=== PATIENT | male | born 1940 | race Caucasian/White ===

== ENCOUNTER → 2023-05-02 07:20 | Outpatient (REF) | payer OTHER, SELFPAY | LOC: DHCBS MAIN 07:20 | PROVIDERS: ATTENDING PHYSICIAN Internal Medicine Cardiovascular Disease; FAMILY PHYSICIAN Family Medicine | DX: I35.0 Nonrheumatic aortic (valve) stenosis (principal) | CPT/HCPCS: 93306 ==

== ENCOUNTER → 2023-05-15 10:52 | Outpatient (REF) | payer OTHER, SELFPAY | LOC: DHCBC/DCA 10:52 | PROVIDERS: ATTENDING PHYSICIAN Internal Medicine Cardiovascular Disease; FAMILY PHYSICIAN Family Medicine | DX: R07.9 Chest pain, unspecified (principal) | CPT/HCPCS: 78452; 93017; A9500 ==

== ENCOUNTER 2024-06-29 18:16 | Emergency (ER) | payer OTHER, SELFPAY ==
[2024-06-29 18:22] VITALS: BP 141/84
[2024-06-29 18:36] LABS: % Basophils 0.4 % (0-2); % Immature Granulocytes 0.3 % (0-0.5); % Monocytes 10.2 % (1.7-9.3); % Neutrophils 63.1 % (42.2-75.2); Absolute Eosinophils 0.1 10^3/uL (0-0.7); Absolute Lymphocytes 1.9 10^3/uL (1.2-3.4); Absolute Monocytes 0.8 10^3/uL (0.1-0.6); Absolute Neutrophils 4.9 10^3/uL (1.4-6.5); Hematocrit 39.8 % (39.0-52.0); Hemoglobin 13.4 g/dL (13.0-18.0); Mean Corp Hgb Conc. 33.7 g/dL (33.0-37.0); Mean Corpuscular Hgb 32.3 pg (27.0-31.0); Mean Corpuscular Volume 95.9 fL (80.0-94.0); Mean Platelet Volume 9.7 fL (7.4-10.4); Nucleated Red Blood Cells % 0 % (-); Platelet Count 273 10^3/uL (130-400); Red Blood Cell Count 4.15 10^6/uL (4.70-6.10); Red Cell Dist. Width 12.6 % (11.5-14.5); White Blood Cell Count 7.7 10^3/uL (4.8-10.8)
[2024-06-29 18:52] LABS: ALT (SGPT) 28 U/L (0-50); AST (SGOT) 33 U/L (17-59); Albumin 4.6 g/dl (3.5-5.0); Alkaline Phosphatase 62 U/L (38-126); Blood Urea Nitrogen 33 mg/dl (9-20); Carbon Dioxide 30 mmol/L (22-30); Chloride 109 mmol/L (98-107); Glucose 126 mg/dl (70-99); Lipase 514 U/L (23-300); Potassium 4.4 mmol/L (3.5-5.1); Sodium 144 mmol/L (135-145); Total Protein 6.9 g/dl (6.3-8.2); eGFR > 60.00
[2024-06-29 19:03] LABS: Troponin I 0.021 ng/ml
--- NOTE | 2024-06-29 22:21 | ED.GENMED ---
History of Present Illness
General
Chief Complaint: Dizziness
Source: patient
Exam Limitations: none
Time Seen by Provider: 06/29/24 22:01
History of Present Illness
History of Present Illness:
See MDM
Past History
Past History
ED Past Medical History: HTN, Hypercholesterolemia and Valvular disease
ED Past Surgical History: Negative Cardiac
Social History
Tobacco: Non-smoker
Alcohol: None
Drug: None
Personal:
Living: with family
Employment: Employed
Phy Exam
Physical Exam
Physical Exam:
See MDM
Course
Orders/Labs/Results
Orders:
Orders
06/29/24 18:17
Electrocardiogram (*1) Urgent
Reason for Study: Chest Pain
EKG- Treatment ONCE
06/29/24 18:29
Complete Blood Count/With Diff Urgent
Comprehensive Metabolic Panel Urgent
Lipase Urgent
Troponin I Urgent
06/29/24 23:03
Urinalysis Reflex To Culture Urgent
Date Specimen was Collected: 06/29/24
Time Specimen was Collected: 22:25
06/29/24 23:12
Tamsulosin [Flomax] 0.4 mg PO NOW STA
Abnormal Lab Results
06/29/24
18:29
RBC 4.15 L 10^6/uL
(4.70-6.10)
MCV 95.9 H fL
(80.0-94.0)
MCH 32.3 H pg
(27.0-31.0)
Absolute Monos (auto) 0.8 H 10^3/uL
(0.1-0.6)
Monocytes % 10.2 H %
(1.7-9.3)
Chloride 109 H mmol/L
(98-107)
BUN 33 H mg/dl
(9-20)
Glucose 126 H mg/dl
(70-99)
Lipase 514 H U/L
(23-300)
06/29/24 18:29
06/29/24 18:29
Vital Signs
Initial and Last Documented VS:
Initial Vital Signs
Temp Pulse Resp BP Pulse Ox
98.4 F 74 18 141/84 98
06/29/24 18:22 06/29/24 18:22 06/29/24 18:22 06/29/24 18:22 06/29/24 18:22
Last Documented Vital Signs
Temp Pulse Resp BP Pulse Ox
98.4 F 60 17 167/89 98
06/29/24 18:22 06/29/24 22:45 06/29/24 22:45 06/29/24 22:30 06/29/24 22:45
MDM/Problems Addressed
Differential Diagnosis Includes:
HPI and MDM Narrative:
84-year-old male presenting with several weeks of dizziness and fatigue and chest pain. He states he is less concerned about the pain but complains more of dizziness. Both symptoms are nonexertional. Blood work was done prior to my assessment and
patient has a normal troponin. Given several weeks of symptoms with a normal troponin and nonischemic EKG, doubt ACS. Upon further questioning, patient has had increased urination. He believes he might have undiagnosed BPH. Bedside bladder scan
shows an empty bladder which makes me more concerned that this could be cystitis. Given the increased urination, patient has been fearful of drinking too much water as he wakes up often in the middle the night to urinate.
We discussed that his symptoms could be related to mild dehydration. He has no cerebellar signs. He does have a murmur but patient states this is normal for him
Blood work also shows mildly elevated lipase but he denies any pain with eating. This could be his chest discomfort. We discussed GI evaluation
We had a long discussion in regards to admission versus discharge. I offered admission for cardiac workup and GI evaluation
However, patient is interested in starting Flomax and having the workup done as an outpatient. If urinalysis is negative, will consider starting Flomax. If urinalysis positive, will treat with antibiotics
Physical exam
General: Well appearing and non-toxic
HEENT: protecting airway. Mildly dry mucous membrane
Neck: appears supple
CV: No evidence of cyanosis. Murmur. Regular rate and rhythm
Resp: No accessory muscle use
Abd: Non-distended and nontender
Extremities: No deformities
Neuro: alert. Normal finger-nose bilaterally
Psych: Normal affect
Skin: Intact
Problems Addressed including Acute and Chronic Conditions affecting care:
1. Dizziness
Acuity: acute
Prognosis: stable
Details: Likely related to decreased p.o. intake. No cerebellar signs
2. Chest pain
Acuity: acute
Prognosis: stable
Details: Given location of pain, likely related to mild pancreatitis. Denies alcohol use. Discussed GI follow-up
3. Increased urination
Acuity: acute
Prognosis: stable
Details: Will obtain urinalysis
Updates
Urinalysis negative. Will treat with Flomax. Discussed return precautions. Patient feels comfortable going home
Differential Diagnosis (but not limited to): Dehydration, cardiac arrhythmia, ACS, UTI, BPH, pancreatitis
Testing considered: Abdominal CT but he has no abdominal tenderness at the moment
Drug therapy (if applicable): OTC meds, please see d/c instruction regarding Rx drugs
Amount and/or Complexity of Data Reviewed
Clinical info obtained from: Patient
External data reviewed: N/A
Labs I independently reviewed (but not limited to): Mild lipase elevation, troponin normal
Radiology: N/A
Pulse Ox: not hypoxic
EKG independently reviewed: Sinus rhythm, left axis, no STEMI
[employer] Instructor: Sinus rhythm
Critical Care: N/A
Risk of Complication:
Social Determinants of health: Good social support
Discussed with other providers: N/A
Escalation of Care includes Admit/Obs: After being observed in the Emergency Department, pt stable for discharge.
Occasional wrong word or 'sound a like' substitutions may have occurred due to the inherent limitations of voice recognition software. Read the chart carefully and recognize, using context, where substitutions have occurred.
*Critical Care Note
Total Time (30-74mins, 75-104mins- exclusive of procedures): Not Applicable
ED Attending Note
-
Portions of this chart may have been created with voice recognition software.� Occasional wrong word or��sound alike� substitutions may have occurred due to the inherent limitations of voice recognition software.
Discharge Plan
Departure
Patient Disposition: Home (Routine Discharge)
Date of Disposition: 06/29/24
Time of Disposition: 23:13
Patient with high blood pressure during this ER visit?: Yes
Discharge Problem:
Light-headed, Increased urinary frequency
Instructions: Chest Pain DCA Follow Up
Prescriptions:
New
tamsulosin [Flomax] 0.4 mg Capsule
0.4 mg PO DAILY Qty: 30 0RF
No Action
simvastatin 20 MG tablet
20 mg PO HS
losartan 100 MG tablet
100 mg PO DAILY
multivitamin [Multi-Day] 1 EACH tablet
1 ea PO DAILY
zinc [Zinc Chelate] 100 MG tablet
100 mg PO PRN PRN (Reason: when sick)
aspirin 81 MG tablet,delayed release (DR/EC)
81 mg PO DAILY
ascorbic acid (vitamin C) [Vitamin C] 500 MG tablet
500 mg PO DAILY
omega [id number]-fish oil 1 EACH capsule
1 ea PO DAILY
Folic Acid:
1 tab PO DAILY
Vitamin B12
500 mg PO PRN PRN (Reason: tired)
Referrals:
Casimiro Gonzales MD [Active] -
Activity Restrictions/Additional Instructions:
Please return for any worsening symptoms.
You may return at any time if you have further concerns.
Please follow up with your doctor at the first available appointment, preferably this week.
Please make an appointment to see the urologist.
You were placed on the cardiac callback tracker. Someone from their office should call you in the next few days. If you do not hear from them in the next few days, please give them a call.
Thank you for choosing [facility].
Interventions
Interventions:
*Risk Screen - Suicide Last Done: 06/29/24 18:22
*General Assessment Last Done: 06/29/24 18:22
*Neglect/Abuse Screening Last Done: 06/29/24 18:22
*ED- Fall Risk Assessment Last Done: 06/29/24 22:28
*ED COVID-19 Vaccine History Last Done: 06/29/24 22:28
ED- Neurological Assessment Last Done: 06/29/24 22:28
ED Swallowing Screen Last Done: 06/29/24 22:28
Discharge Date and Time
Print Language: DOMINICAN
[2024-06-29 22:26] VITALS: BMI 24.7
[2024-06-29 22:30] VITALS: BP 167/89
[2024-06-29 23:11] LABS: Urine Albumin Negative (Neg - Trace); Urine Bilirubin Negative (Negative); Urine Character Clear (Clear); Urine Color Yellow; Urine Glucose Negative (Negative); Urine Ketone Negative (Negative); Urine Leukocyte Negative (Negative); Urine Nitrite Negative (Negative); Urine Occult Blood Negative (Negative); Urine Urobilinogen Negative (Neg - 1+)
[2024-06-29] MEDS: FLOMAX 0.4 MG PO (23:19)
== END 2024-06-29 23:20 | disposition home or self-care (01) ==
LOC: EMR 18:16
PROVIDERS: Emergency Medicine; EMERGENCY PHYSICIAN Student in an Organized Health Care Education/Training Program; FAMILY PHYSICIAN Family Medicine
DX: R42 Dizziness and giddiness (principal); R35.0 Frequency of micturition; I10 Essential (primary) hypertension; E78.00 Pure hypercholesterolemia, unspecified; I38 Endocarditis, valve unspecified
CPT/HCPCS: 99283; 80053; 81003; 83690; 84484; 85025; 93005

== ENCOUNTER → 2024-08-06 14:26 | Outpatient (REF) | payer OTHER, SELFPAY | LOC: RCS 14:26 | PROVIDERS: ATTENDING PHYSICIAN Nurse Practitioner; FAMILY PHYSICIAN Family Medicine | DX: R07.9 Chest pain, unspecified (principal); I10 Essential (primary) hypertension; I35.0 Nonrheumatic aortic (valve) stenosis | CPT/HCPCS: 93306 ==